=== PATIENT | female | born 1995 | race Caucasian/White ===

== ENCOUNTER 2022-06-05 06:57 | Emergency (ER) | payer OTHER, MEDICAID, SELFPAY ==
[2022-06-05 07:06] VITALS: BP 146/90; PULSE 88; RESP 16; O2SAT 100; BMI 22.3
--- NOTE | 2022-06-05 07:16 | DI.US.S_ITS ---
PROCEDURE: US EXTREMITY NONVASC UPPER LT INDICATIONS: POSSIBLE FOREIGN BODY LEFT THUMB TECHNIQUE: Real-time scanning was performed of the left thumb , with image documentation. COMPARISON: None. FINDINGS: Multiple grayscale and color Doppler images of the left thumb were acquired over the area of clinical concern. No sonographic evidence for foreign body identified. No abnormal fluid collection or suspicious mass. IMPRESSION: No sonographic evidence for foreign body in the left thumb. Dictated by: David Bethea M.D. on 06/05/2022 at 7:44 Approved by: David Bethea M.D. on 06/05/2022 at 7:45
--- NOTE | 2022-06-05 07:17 | DI.RAD.S_ITS ---
PROCEDURE: XR FINGER LT MIN 2V INDICATIONS: lt thumb pain/swelling TECHNIQUE: AP hand, 2 views of the left thumb finger(s) acquired. COMPARISON: None. FINDINGS: Bones: No fractures or dislocations. No suspicious bony lesions. Soft tissues: No suspicious soft tissue calcifications. Mild soft tissue swelling of the left thumb. No radiopaque soft tissue foreign body. IMPRESSION: Soft tissue swelling of the left thumb without underlying fracture or dislocation. No radiopaque soft tissue foreign bodies. If there are persistent symptoms or clinical suspicion for pathology, then repeat radiographs or advanced imaging (CT or MRI) may be considered for further evaluation. Dictated by: David Bethea M.D. on 06/05/2022 at 7:46 Approved by: David Bethea M.D. on 06/05/2022 at 7:47
--- NOTE | 2022-06-05 07:19 | ED.SKABFB ---
HPI - Skin/Abscess/Foreign Bdy General Chief complaint: Skin/Abscess/Foreign Body Stated complaint: Poss infection in left thumb Time Seen by Provider: 06/05/22 07:12 Source: patient Mode of arrival: Ambulatory History of Present Illness HPI narrative: Patient here for left pain swelling redness for the past 6 days. Patient is on Bactrim that was started 2 or 3 days ago by methadone clinic. Not improved with redness or wound. Patient states 6 days ago she was cleaning up some broken glass that her sister broke. She got scraped by a piece of glass. She is uncertain if the piece of glass still in there. Wound is located on the medial side of the night be joint dorsal surface of the left thumb. No fever chills. No red streaking proximally. Has had off and on drainage. Denies does not want a test. She needs update on her tetanus shot Related Data Home Medications Medication Instructions Recorded Confirmed clonidine HCl 0.1 mg tablet mg 06/05/22 methadone 06/05/22 sulfamethoxazole 800 tab 06/05/22 mg-trimethoprim 160 mg tablet Previous Rx's Medication Instructions Recorded clindamycin HCl 300 mg capsule 300 mg PO QID #28 caps 06/05/22 Allergies Allergy/AdvReac Type Severity Reaction Status Date / Time Penicillins Allergy Verified 06/05/22 07:08 Review of Systems Review of Systems Narrative: GENERAL: Denies chills, fatigue, malaise, fever, sweats. HEENT: Denies sinus pain, ear pain, sore throat RESPIRATORY: Denies dyspnea, cough CARDIOVASCULAR: Denies chest pain, palpitations GASTROINTESTINAL: Denies nausea, vomiting, abdominal pain : Denies dysuria, frequency, hematuria MUSCULOSKELETAL: denies muscle or bony pain SKIN: Denies rash, skin lesions, positive for skin wound NEUROLOGIC: Denies weakness, numbness ROS Unobtainable: All systems reviewed & are unremarkable except as noted in HPI and below Exam Narrative Exam Narrative: GENERAL: in no distress, not toxic not dyspneic HEAD: Normocephalic. EYES: Pupils equal round No scleral icterus. EXTREMITIES: No gross deformities. Examination of the left hand. At the thumb at the IP joint on the medial aspect dorsal surface there is area of erythema 1 cm in diameter with central ulceration. No active oozing. No bleeding. Patient able to fully flex extend at the MCP joint and IP joints. Does not involve the fingernail. It is tender to touch. No proximal red streaking. NEURO: AOx4. SKIN: Warm and dry PSYCH: Not anxious, is cooperative Initial Vital Signs Initial Vital Signs: Vital Signs Pulse Rate 88 06/05/22 07:06 Respiratory Rate 16 06/05/22 07:06 Blood Pressure 146/90 H 06/05/22 07:06 Pulse Oximetry 100 06/05/22 07:06 Oxygen Delivery Method 06/05/22 07:06 Course Course Course Narrative: No new issues during course of stay Orders Ordered: Discontinued Medications Bacitracin (Bacitracin Oint 0.9 Gm Pckt) 1 applic TOP NOW ONE Stop: 06/05/22 08:04 Last Admin: 06/05/22 08:11 Dose: 1 applic Documented By: ALIA Clindamycin HCl (Clindamycin 150 Mg Capsule) 300 mg PO NOW ONE Stop: 06/05/22 07:18 Last Admin: 06/05/22 07:26 Dose: 300 mg Documented By: MICK Diphtheria/Tetanus/Acell Pertussis (Tet,Diph,Pertuss(Acell),Vac/Pf 0.5 Ml Syringe) 0.5 ml IM .ONCE ONE Stop: 06/05/22 07:51 Last Admin: 06/05/22 08:10 Dose: 0.5 ml Documented By: ALIA Reevaluation(s) Reevaluation #1: Reviewed results with patient. Tetanus shot given. Antibiotics given. Return precautions reviewed with patient. She desires discharge home. Time: 08:19 Vital Signs Vital signs: Vital Signs - 8 hr 06/05/22 07:06 Pulse Rate 88 Respiratory Rate 16 Blood Pressure 146/90 H Pulse Oximetry 100 Oxygen Delivery Method Room Air MDM - Skin/Abscess/Foreign Bdy Differential Diagnosis Differential diagnosis: Likely abscess of skin or subcutaneous tissue, cellulitis and other (Infected skin wound/retained foreign body) Imaging Data Extremity x-ray #1: Radiologist's Impression: [address] [address] XRay Report Signed Patient: Trinh Mullins MR#: [id number] : 1995 Acct:[id number] Age/Sex: 26 / F Date of Service: 06/05/22 Loc: ED Accession Number: [id number] ?? Procedure: XR finger LT min 2V Ordering Provider: Brent Sanchez MD PROCEDURE:? XR FINGER LT MIN 2V ? INDICATIONS:? lt thumb pain/swelling ? TECHNIQUE:? AP hand, 2 views of the left thumb finger(s) acquired.? ? COMPARISON:? None. ? FINDINGS:? ? Bones:? No fractures or dislocations.? No suspicious bony lesions.? ? Soft tissues:? No suspicious soft tissue calcifications.? Mild soft tissue swelling of the left thumb.? No radiopaque soft tissue foreign body. ? IMPRESSION:? ? Soft tissue swelling of the left thumb without underlying fracture or dislocation. No radiopaque soft tissue foreign bodies. ? If there are persistent symptoms or clinical suspicion for pathology, then repeat radiographs or advanced imaging (CT or MRI) may be considered for further evaluation. ? ? ? Dictated by: David Bethea M.D. on 06/05/2022 at 7:46 ? ? Approved by: David Bethea M.D. on 06/05/2022 at 7:47 ? Extremity x-ray #2: Radiologist's Impression: [place] [address] Ultrasound Report Signed Patient: Trinh Mullins MR#: [id number] : 1995 Acct:[id number] Age/Sex: 26 / F Date of Service: 06/05/22 Loc: ED Accession Number: [id number] ?? Procedure: US extremity nonvasc upper lt Ordering Provider: Brent Sanchez MD PROCEDURE:? US EXTREMITY NONVASC UPPER LT ? INDICATIONS:? POSSIBLE FOREIGN BODY LEFT THUMB ? TECHNIQUE:? Real-time scanning was performed of the left thumb , with image documentation.? ? COMPARISON:? None. ? FINDINGS:? Multiple grayscale and color Doppler images of the left thumb were acquired over the area of clinical concern.? No sonographic evidence for foreign body identified.? No abnormal fluid collection or suspicious mass. ? IMPRESSION:? No sonographic evidence for foreign body in the left thumb. ? ? Dictated by: David Bethea M.D. on 06/05/2022 at 7:44 ? ? Approved by: David Bethea M.D. on 06/05/2022 at 7:45 ? MDM Narrative Medical decision making narrative: Appropriate for discharge home exam imaging studies are reassuring. Return precautions reviewed patient. I did review with her small granules of glass may be in there but risk of injuring tendons or musculature in the thumb, she declines to have procedure. Return precautions reviewed with her. Referral for wound clinic given. Antibiotics started here. Not toxic at discharge. Dressing and bacitracin applied to the wound. Discharge Plan Departure Patient Disposition: Home Clinical Impression: Wound infection Instructions: DI for Wound Infection Activity Restrictions/Additional Instructions: See family doctor next week for re-evaluation of your skin wound. Call provided clinic if you need a family doctor. Prescription antibiotic has been sent to your [facility] pharmacy in [place]. Stop the previous antibiotic/Bactrim. Clean wound daily with warm soap and water and apply thin layer of topical antibiotic. Return if worse or for any questions or concerns. Call provided primary care referral phone number to establish family doctor. Call [phone]. You may also call provided wound clinic, Dr De La Garza, today to establish appointment to take care of your skin wound as well. Prescriptions: New clindamycin HCl 300 mg capsule 300 mg PO QID Qty: 28 0RF No Action clonidine HCl 0.1 mg tablet Label Comments: TAKE 1 TABLET BY MOUTH EVERY 8 HOURS FOR ANXIETY sulfamethoxazole-trimethoprim 800-160 mg tablet Label Comments: TAKE 1 TABLET BY MOUTH TWICE DAILY FOR 7 DAYS methadone Referrals: Arnulfo De La Garza MD [Physician] - Visit Report Forms: Patient Portal/API
[2022-06-05] MEDS: CLINDAMYCIN 150 MG CAPSULE 300 MG PO (07:26)
[2022-06-05] MEDS: TET,DIPH,PERTUSS(ACELL),VAC/PF 0.5 ML SYRINGE IM (08:10)
[2022-06-05] MEDS: BACITRACIN OINT 0.9 GM PCKT 1 APPLIC TOP (08:11)
== END 2022-06-05 08:24 | disposition home or self-care (01) ==
PROVIDERS: Emergency Provider Emergency Medicine
DX: L08.9 Local infection of the skin and subcutaneous tissue, unspecified (principal); Z23 Encounter for immunization
CPT/HCPCS: 73140; 76882; 90471; 99283; 99284; 90715